=== PATIENT | male | born 1970 | race Caucasian/White ===

== ENCOUNTER 2016-11-21 05:28 | Emergency (ER) | payer BC ==
[~2016-11-21] VITALS: Ht 185.4 cm; Wt 144.2 kg
[~2016-11-21 05:28] MED LIST: AMLODIPINE-BEN1 EAC4 PO; IBUPROFEN800 MG PO
[2016-11-21 05:54] LABS: HEMATOCRIT 38.5 % (38.0-50.0); MCH 29.2 PG (29.0-34.0); MCHC 35.8 G/DL (30.0-36.0); MCV 81.6 FL (86-99); MEAN PLAT.VOLUME 9.6 uM^3 (9.0-12.4); PLATELET COUNT 237 K/uL (156-360); RBC DIS.WIDTH-CV 12.5 % (11.8-14.6); RBC DIS.WIDTH-SD 36.4 % (39-53); RED BLOOD COUNT 4.72 M/uL (4.00-5.50); WHITE BLOOD COUNT 6.3 K/uL (4.1-10.2)
[2016-11-21 06:04] LABS: CHLORIDE 104 mEq/L (99-109); POTASSIUM 3.8 mEq/L (3.7-5.4); SODIUM 138 mEq/L (136-147)
[2016-11-21 06:05] LABS: GLUCOSE 114 mg/dL (70-99)
[2016-11-21 06:06] LABS: ANION GAP 10 MEQ/L (2-14)
[2016-11-21 06:09] LABS: GFR ESTIMATE (CALCULATED) 53 mL/min/
[2016-11-21 06:10] LABS: UREA NITROGEN (BUN) 20 mg/dL (9-23)
[2016-11-21 06:13] LABS: TROP-I INTERPRETATION NEGATIVE; TROPONIN-I < 0.01 ng/mL (0.0-0.30)
[2016-11-21 06:23] LABS: D-DIMER ELISA 0.29 mg/L FEU (< 0.57)
[2016-11-21 08:33] LABS: TROP-I INTERPRETATION NEGATIVE; TROPONIN-I < 0.01 ng/mL (0.0-0.30)
[2016-11-21 09:00] VITALS: BP 131/77
== END 2016-11-21 09:02 | disposition home or self-care (01) ==
LOC: EME 05:28
PROVIDERS: Emergency Medicine
DX: R07.9 Chest pain, unspecified (principal); N28.9 Disorder of kidney and ureter, unspecified; E86.0 Dehydration; I10 Essential (primary) hypertension
CPT/HCPCS: 71020; 80048; 84484; 85027; 85379; 93005; 99281; 99285